=== PATIENT | female | born 1985 | race Caucasian/White ===

== ENCOUNTER 2016-07-15 17:18 | Inpatient (IN) | payer OTHER ==
[~2016-07-15] VITALS: Ht 167.6 cm; Wt 55.2 kg
[~2016-07-15 17:18] MED LIST: DICL75 PO; Z.0.BCPILL PO
[2016-07-15 17:20] VITALS: BP 107/75; PULSE 144; RESP 20; TEMP 98.3; O2SAT 98
[2016-07-15] MEDS ORDERED: SODIUM CHLOR 0.9% 1000 ML INJ 1,000 ML IV SCH ×2 (17:42)
[2016-07-15] MEDS ORDERED: ONDANSETRON HCL 4 MG/2 ML VIAL IV PUSH ONE (17:45)
--- NOTE | 2016-07-15 17:46 | PD ---
HPI Chief Complaint: Abdominal Pain Time Seen by Provider: 17:37 Travel History International Travel<30 days: No Contact w/Intl Traveler<30days: No Traveled to known affect area: No History of Present Illness HPI This is a 30-year-old female who presents for evaluation of abdominal pain, diarrhea, nausea, vomiting, fevers. She reports that she has had several episodes of watery diarrhea for the past 5-6 days. For the past 3 days she has had right-sided abdominal pain, fevers as high as 104, nausea and vomiting. She describes the pain is an aching pain which is constant but worse with palpation. Denies any dysuria or increased urinary frequency or hesitancy, cough or congestion, stiff neck, sore throat, rash or recent travel. She does note that about a month ago she was treated for skin infection with an antibiotic but she does not remember the name of the antibiotic. No history of abdominal surgery in the past. No history of C. difficile in the past. Her primary care physician is Dr. Slade and Dr. Slade told to come here today for evaluation. She has no other complaints. [facility] Past Medical History Anxiety: Yes Diminished Hearing: No Headaches: Yes Immunizations Current: Yes ?: Not Past Surgical History Oral Surgery: Yes Other Surgery: Yes (some skin moles removed) Family History Family Hypercholesterolemia: Yes Social History Alcohol Use: Yes (DAILY/LARGE BOTTLE VODKA PER WEEK) Tobacco Use: Yes (1 PPD) Substance Use: Yes (marijuana ) Allergies-Medications (Allergen,Severity, Reaction): Coded Allergies: Codeine (Verified Allergy, Severe, Rash, 07/15/16) itching, nausea/vomiting Latex (Verified Allergy, Severe, Rash, 07/15/16) Morphine (Verified Allergy, Severe, Nausea/Vomiting, 07/15/16) Reported Meds & Prescriptions Reported Meds & Active Scripts Active Reported Flexeril (Cyclobenzaprine HCl) 10 Mg Tab 10 Mg PO TID Naproxen 500 Mg Tab 500 Mg PO BID PRN Sertraline (Sertraline HCl) 50 Mg Tab 50 Mg PO DAILY Xanax (Alprazolam) 0.25 Mg Tab 0.25 Mg PO DAILY PRN Review of Systems Except as stated in HPI: all other systems reviewed are Neg Physical Exam Narrative GENERAL: This is a well-developed well-nourished female who appears uncomfortable on initial examination. She is tachycardic in triage. SKIN: Warm and dry. HEAD: Atraumatic. Normocephalic. EYES: Pupils equal and round. No scleral icterus. No injection or drainage. ENT: No nasal bleeding or discharge. Mucous membranes pink and moist. NECK: Trachea midline. No JVD. CARDIOVASCULAR: Regular rate and rhythm. No murmur appreciated. RESPIRATORY: No accessory muscle use. Clear to auscultation. Breath sounds equal bilaterally. GASTROINTESTINAL: Abdomen soft, right upper and lower quadrant tenderness to palpation without guarding. There is right CVA tenderness. MUSCULOSKELETAL: No obvious deformities. No edema. Neck supple with full range of motion. NEUROLOGICAL: Awake and alert. No obvious cranial nerve deficits. Motor grossly within normal limits. Normal speech. PSYCHIATRIC: Appropriate mood and affect; insight and judgment normal. Data Data Last Documented VS Vital Signs Date Time Temp Pulse Resp B/P Pulse Ox O2 Delivery O2 Flow Rate FiO2 07/15/16 19:20 100.1 112 18 123/68 100 Room Air Orders Complete Blood Count With Diff (07/15/16 17:41) Comprehensive Metabolic Panel (07/15/16 17:41) Lactic Acid Sepsis Protocol (07/15/16 17:41) Magnesium (Mg) (07/15/16 17:41) Urinalysis - C+S If Indicated (07/15/16 17:41) Blood Culture (07/15/16 17:41) Ecg Monitoring (07/15/16 17:41) Iv Access Insert/Monitor (07/15/16 17:41) Oximetry (07/15/16 17:41) Oxygen Administration (07/15/16 17:41) Ct Abd/Pel W Iv Contrast(Rout) (07/15/16 17:41) Ed Urine Pregnancytest Poc (07/15/16 17:41) Influenzae A/B Antigen (07/15/16 17:41) Electrocardiogram (07/15/16 ) C Diff Toxin Pcr (07/15/16 17:42) Enteric Path (Stool) (07/15/16 17:42) Sodium Chlor 0.9% 1000 Ml Inj (Ns 1000 M (07/15/16 17:42) Sodium Chlor 0.9% 1000 Ml Inj (Ns 1000 M (07/15/16 17:42) Ondansetron Inj (Zofran Inj) (07/15/16 17:45) Hydromorphone Pf Inj (Dilaudid Pf Inj) (07/15/16 18:00) Urine Culture (07/15/16 17:55) Ceftriaxone Inj (Rocephin Inj) (07/15/16 19:00) Iohexol 350 Inj (Omnipaque 350 Inj) (07/15/16 19:30) Admit Order (Ed Use Only) (07/15/16 20:41) Labs Laboratory Tests Test 07/15/16 07/15/16 17:55 20:35 Sodium Level 132 MEQ/L Potassium Level 3.5 MEQ/L Chloride Level 92 MEQ/L Carbon Dioxide Level 24.9 MEQ/L Anion Gap 15 MEQ/L Blood Urea Nitrogen 17 MG/DL Creatinine 0.91 MG/DL Estimat Glomerular Filtration 72 ML/MIN Rate Random Glucose 120 MG/DL Lactic Acid Level 2.1 mmol/L 0.9 mmol/L Calcium Level 9.0 MG/DL Magnesium Level 1.5 MG/DL Total Bilirubin 0.7 MG/DL Aspartate Amino Transf 43 U/L (AST/SGOT) Alanine Aminotransferase 48 U/L (ALT/SGPT) Alkaline Phosphatase 150 U/L Total Protein 7.7 GM/DL Albumin 3.6 GM/DL White Blood Count 15.2 TH/MM3 Red Blood Count 4.44 MIL/MM3 Hemoglobin 14.6 GM/DL Hematocrit 43.6 % Mean Corpuscular Volume 98.2 FL Mean Corpuscular Hemoglobin 32.9 PG Mean Corpuscular Hemoglobin 33.6 % Concent Red Cell Distribution Width 12.5 % Platelet Count 100 TH/MM3 Mean Platelet Volume 9.6 FL Neutrophils (%) (Auto) 85.7 % Lymphocytes (%) (Auto) 3.6 % Monocytes (%) (Auto) 10.4 % Eosinophils (%) (Auto) 0.0 % Basophils (%) (Auto) 0.3 % Neutrophils # (Auto) 13.0 TH/MM3 Lymphocytes # (Auto) 0.6 TH/MM3 Monocytes # (Auto) 1.6 TH/MM3 Eosinophils # (Auto) 0.0 TH/MM3 Basophils # (Auto) 0.0 TH/MM3 CBC Comment DIFF FINAL Differential Comment Urine Color ORANGE Urine Turbidity CLOUDY Urine pH 6.0 Urine Specific [place] 1.025 Urine Protein 300 mg/dL Urine Glucose (UA) NEG mg/dL Urine Ketones TRACE mg/dL Urine Occult Blood MOD Urine Nitrite NEG Urine Bilirubin NEG Urine Urobilinogen 4.0 MG/DL Urine Leukocyte Esterase LARGE Urine RBC 4 /hpf Urine WBC /hpf Urine WBC Clumps OCC Urine Squamous Epithelial 6 /hpf Cells Urine Bacteria FEW /hpf Urine Hyaline Casts 12 /lpf Urine Mucus MANY /lpf Microscopic Urinalysis Comment CULTURE INDICATED MDM Medical Decision Making Medical Screen Exam Complete: Yes Emergency Medical Condition: Yes Medical Record Reviewed: Yes Differential Diagnosis C. difficile colitis, gastroenteritis, appendicitis, tubo-ovarian abscess, sepsis, dehydration, electrolyte abnormality Narrative Course This is a 28-year-old female who presents with 5-6 days of watery stool, 3 days of high fevers, nausea and vomiting and right-sided abdominal and flank pain. On initial examination she appears uncomfortable. She is tachycardic with a heart rate of 144, not currently afebrile in triage she reports that she took naproxen earlier in the day. Given history of recent antibiotic use stool cultures and C. difficile PCR been ordered. IV will be established, EKG will be ordered, lab work, blood cultures, urinalysis will be sent. 2 L of IV fluids and Zofran has been ordered. This patient was initially seen in triage. The patient will be moved to medical bed when one becomes available. Glenn Chew Jul 15, 2016 17:46
[2016-07-15 17:50] VITALS: BP 122/69; PULSE 129; RESP 18; O2SAT 100
--- NOTE | 2016-07-15 17:57 | PD ---
Physical Exam Date Seen by Provider: Jul 15, 2016 Time Seen by Provider: 17:54 Narrative The patient is a 30-year-old female who was initially evaluated by the mid-level provider, James Chew PA-C, in triage. Please refer to the initial history, physical, diagnostic evaluation, and treatment modality plan. Data Data Last Documented VS Vital Signs Date Time Temp Pulse Resp B/P Pulse Ox O2 Delivery O2 Flow Rate FiO2 07/15/16 19:20 100.1 112 18 123/68 100 Room Air Orders Complete Blood Count With Diff (07/15/16 17:41) Comprehensive Metabolic Panel (07/15/16 17:41) Lactic Acid Sepsis Protocol (07/15/16 17:41) Magnesium (Mg) (07/15/16 17:41) Urinalysis - C+S If Indicated (07/15/16 17:41) Blood Culture (07/15/16 17:41) Ecg Monitoring (07/15/16 17:41) Iv Access Insert/Monitor (07/15/16 17:41) Oximetry (07/15/16 17:41) Oxygen Administration (07/15/16 17:41) Ct Abd/Pel W Iv Contrast(Rout) (07/15/16 17:41) Ed Urine Pregnancytest Poc (07/15/16 17:41) Influenzae A/B Antigen (07/15/16 17:41) Electrocardiogram (07/15/16 ) C Diff Toxin Pcr (07/15/16 17:42) Enteric Path (Stool) (07/15/16 17:42) Sodium Chlor 0.9% 1000 Ml Inj (Ns 1000 M (07/15/16 17:42) Sodium Chlor 0.9% 1000 Ml Inj (Ns 1000 M (07/15/16 17:42) Ondansetron Inj (Zofran Inj) (07/15/16 17:45) Hydromorphone Pf Inj (Dilaudid Pf Inj) (07/15/16 18:00) Urine Culture (07/15/16 17:55) Ceftriaxone Inj (Rocephin Inj) (07/15/16 19:00) Iohexol 350 Inj (Omnipaque 350 Inj) (07/15/16 19:30) Labs Laboratory Tests Test 07/15/16 17:55 White Blood Count 15.2 TH/MM3 Red Blood Count 4.44 MIL/MM3 Hemoglobin 14.6 GM/DL Hematocrit 43.6 % Mean Corpuscular Volume 98.2 FL Mean Corpuscular Hemoglobin 32.9 PG Mean Corpuscular Hemoglobin 33.6 % Concent Red Cell Distribution Width 12.5 % Platelet Count 100 TH/MM3 Mean Platelet Volume 9.6 FL Neutrophils (%) (Auto) 85.7 % Lymphocytes (%) (Auto) 3.6 % Monocytes (%) (Auto) 10.4 % Eosinophils (%) (Auto) 0.0 % Basophils (%) (Auto) 0.3 % Neutrophils # (Auto) 13.0 TH/MM3 Lymphocytes # (Auto) 0.6 TH/MM3 Monocytes # (Auto) 1.6 TH/MM3 Eosinophils # (Auto) 0.0 TH/MM3 Basophils # (Auto) 0.0 TH/MM3 CBC Comment DIFF FINAL Differential Comment Urine Color ORANGE Urine Turbidity CLOUDY Urine pH 6.0 Urine Specific [place] 1.025 Urine Protein 300 mg/dL Urine Glucose (UA) NEG mg/dL Urine Ketones TRACE mg/dL Urine Occult Blood MOD Urine Nitrite NEG Urine Bilirubin NEG Urine Urobilinogen 4.0 MG/DL Urine Leukocyte Esterase LARGE Urine RBC 4 /hpf Urine WBC /hpf Urine WBC Clumps OCC Urine Squamous Epithelial 6 /hpf Cells Urine Bacteria FEW /hpf Urine Hyaline Casts 12 /lpf Urine Mucus MANY /lpf Microscopic Urinalysis Comment CULTURE INDICATED Sodium Level 132 MEQ/L Potassium Level 3.5 MEQ/L Chloride Level 92 MEQ/L Carbon Dioxide Level 24.9 MEQ/L Anion Gap 15 MEQ/L Blood Urea Nitrogen 17 MG/DL Creatinine 0.91 MG/DL Estimat Glomerular Filtration 72 ML/MIN Rate Random Glucose 120 MG/DL Lactic Acid Level 2.1 mmol/L Calcium Level 9.0 MG/DL Magnesium Level 1.5 MG/DL Total Bilirubin 0.7 MG/DL Aspartate Amino Transf 43 U/L (AST/SGOT) Alanine Aminotransferase 48 U/L (ALT/SGPT) Alkaline Phosphatase 150 U/L Total Protein 7.7 GM/DL Albumin 3.6 GM/DL [facility] Medical Record Reviewed: Yes Supervised Visit with ELVIS: Yes Interpretation(s) EKG reveals sinus tachycardia with a heart rate of 129. Short VT interval of 80 ms, no delta wave visible. Nonspecific T wave changes. CT of the abdomen and pelvis reveals right sided pyelonephritis. No evidence of urinary tract obstruction. Laboratory Tests Test 07/15/16 17:55 White Blood Count 15.2 TH/MM3 Red Blood Count 4.44 MIL/MM3 Hemoglobin 14.6 GM/DL Hematocrit 43.6 % Mean Corpuscular Volume 98.2 FL Mean Corpuscular Hemoglobin 32.9 PG Mean Corpuscular Hemoglobin 33.6 % Concent Red Cell Distribution Width 12.5 % Platelet Count 100 TH/MM3 Mean Platelet Volume 9.6 FL Neutrophils (%) (Auto) 85.7 % Lymphocytes (%) (Auto) 3.6 % Monocytes (%) (Auto) 10.4 % Eosinophils (%) (Auto) 0.0 % Basophils (%) (Auto) 0.3 % Neutrophils # (Auto) 13.0 TH/MM3 Lymphocytes # (Auto) 0.6 TH/MM3 Monocytes # (Auto) 1.6 TH/MM3 Eosinophils # (Auto) 0.0 TH/MM3 Basophils # (Auto) 0.0 TH/MM3 CBC Comment DIFF FINAL Differential Comment Urine Color ORANGE Urine Turbidity CLOUDY Urine pH 6.0 Urine Specific [place] 1.025 Urine Protein 300 mg/dL Urine Glucose (UA) NEG mg/dL Urine Ketones TRACE mg/dL Urine Occult Blood MOD Urine Nitrite NEG Urine Bilirubin NEG Urine Urobilinogen 4.0 MG/DL Urine Leukocyte Esterase LARGE Urine RBC 4 /hpf Urine WBC /hpf Urine WBC Clumps OCC Urine Squamous Epithelial 6 /hpf Cells Urine Bacteria FEW /hpf Urine Hyaline Casts 12 /lpf Urine Mucus MANY /lpf Microscopic Urinalysis Comment CULTURE INDICATED Sodium Level 132 MEQ/L Potassium Level 3.5 MEQ/L Chloride Level 92 MEQ/L Carbon Dioxide Level 24.9 MEQ/L Anion Gap 15 MEQ/L Blood Urea Nitrogen 17 MG/DL Creatinine 0.91 MG/DL Estimat Glomerular Filtration 72 ML/MIN Rate Random Glucose 120 MG/DL Lactic Acid Level 2.1 mmol/L Calcium Level 9.0 MG/DL Magnesium Level 1.5 MG/DL Total Bilirubin 0.7 MG/DL Aspartate Amino Transf 43 U/L (AST/SGOT) Alanine Aminotransferase 48 U/L (ALT/SGPT) Alkaline Phosphatase 150 U/L Total Protein 7.7 GM/DL Albumin 3.6 GM/DL Differential Diagnosis Differential diagnosis includes influenza, colitis, enteritis, gastroenteritis, viral syndrome, atypical appendicitis, pyelonephritis, PID, cervicitis, sepsis. Narrative Course I, Dr. Duque, have reviewed the advance practice practitioner's documentation and am in agreement, met with the patient face to face, made the diagnosis, and the medical decision making was done by me. *My assessment and Findings: The patient is a 30-year-old female who is initially evaluated by Alex Chew PA-C. Please refer to the initial history , physical, diagnostic evaluation, and treatment modality plan. The patient notes a 4-5 day history of generalized pain, nausea, vomiting, diarrhea, and right sided abdominal pain. She also notes temperatures at home as high as 104. The patient denies any dysuria, frequency, or urgency. She does note mild white discharge with wiping which is normal, cannot recall her last menstrual cycle. However, she does note a history of irregular menstrual cycles. She does note the diarrhea as loose, watery, she took an antibiotic one month ago. However, she denies any known history of clostridium difficile. The patient did have laboratory evaluation and CT of the abdomen/pelvis as well as stool studies ordered in triage. The patient was administered 2 L of IV fluids, Zofran, and Dilaudid 0.5 mg intravenously. The patient's allergy to morphine as nausea, therefore, antiemetics were administered first. The patient 's white count is elevated 15.2, lactic acid is elevated 2.1, UA reveals innumerable WBCs. Therefore, patient will be treated for pyelonephritis, was administered Rocephin 1 g intravenously. Bedside UA test was negative. CT the abdomen and pelvis reveals right sided pyelonephritis. After 2 L of IV fluids, the patient's heart rate was still 120. Therefore, as patient does meet sepsis criteria, continues to be tachycardic after 2 L of IV fluids, the patient will be admitted. Sepsis Criteria SIRS Criteria (2 or more): Heart rate over 90, WBC > 94009, < 4000 or > 10% bands Sepsis Criteria (SIRS+source): Infect source susp/known Severe Sepsis (+one): Lactate >2 Criteria Outcome: Meets severe sepsis criteria Physician Communication Physician Communication [facility] [employer] I discussed the patient with Dr. Caballero who agrees with admission. Diagnosis Primary Impression: Pyelonephritis Additional Impression: Sepsis Qualified Code: A41.9 - Sepsis, due to unspecified organism Admitting Information Admitting Physician Requests: Admit Condition: Stable Jhonny Duque MD Jul 15, 2016 17:57
[2016-07-15] MEDS ORDERED: HYDROmorphone HCL PF 1 MG/ML VIAL IV PUSH ONE (18:00)
[2016-07-15 18:15] LABS: BASOPHIL % 0.3 % (0.0-2.0); HEMATOCRIT 43.6 % (35.0-46.0); HEMO FLAGS DIFF FINAL; LYMPH % 3.6 % (9.0-44.0); LYMPHOCYTE # 0.6 TH/MM3 (1.0-4.8); MEAN CELL VOLUME 98.2 FL (80.0-100.0); MEAN CORPUSCULAR HEMOGLOBIN 32.9 PG (27.0-34.0); MEAN CORPUSCULAR HGB CONC 33.6 % (32.0-36.0); MONO % 10.4 % (0.0-8.0); NEUT % 85.7 % (16.0-70.0); PLATELET COUNT 100 TH/MM3 (150-450); RED BLOOD COUNT 4.44 MIL/MM3 (4.00-5.30); RED CELL DISTRIBUTION WIDTH 12.5 % (11.6-17.2); WHITE BLOOD COUNT 15.2 TH/MM3 (4.0-11.0)
[2016-07-15 18:17] LABS: BACTERIA, URINE FEW /hpf; BLOOD, URINE MOD (NEG); COMMENT (UR) CULTURE INDICATED; CULTURE IF INDICATED CULTURE INDICATED; GLUCOSE,URINE NEG (NEG); HYALINE CAST, URINE 12 /lpf (RARE); KETONE, URINE TRACE mg/dL (NEG); MUCUS URINE MANY /lpf (OCC); NITRITE,URINE NEG (NEG); SQUAMOUS EPITHELIAL CELL URINE 6 /hpf (0-5)
[2016-07-15 18:18] LABS: URINE COLOR ORANGE (YELLW/STRAW)
[2016-07-15 18:37] LABS: ANION GAP 15 MEQ/L (5-15); AST (GOT) 43 U/L (15-37); BICARBONATE 24.9 MEQ/L (21.0-32.0); BLOOD UREA NITROGEN 17 MG/DL (7-18); CHLORIDE 92 MEQ/L (98-107); GLOMERULAR FILTRATION RATE 72 ML/MIN (>89); MAGNESIUM 1.5 MG/DL (1.5-2.5); POTASSIUM 3.5 MEQ/L (3.5-5.1); SODIUM (NA) 132 MEQ/L (136-145)
[2016-07-15 18:40] LABS: ALKALINE PHOSPHATASE 150 U/L (45-117); ALT (GPT) 48 U/L (10-53); TOTAL BILIRUBIN ADULT 0.7 MG/DL (0.2-1.0)
[2016-07-15] MEDS ORDERED: cefTRIAXone INJ 1,000 MG in SODIUM CHLORIDE 0.9% INJ 100 ML IV ONE (19:00)
[2016-07-15 19:20] VITALS: BP 123/68; PULSE 112; RESP 18; TEMP 100.1; O2SAT 100
[2016-07-15] MEDS ORDERED: IOHEXOL 350 MG/ML 10 ML VIAL (for RAD DIAG) IV ONE (19:30)
--- NOTE | 2016-07-15 19:41 | RADRPT ---
EXAM DATE/TIME: 07/15/2016 19:16 [place] COMPARISON: No previous studies available for comparison. INDICATIONS : Lower abdominal pain that radiates to back with fever. IV CONTRAST: 100 cc Omnipaque 350 (iohexol) IV ORAL CONTRAST: No oral contrast ingested. RADIATION DOSE: 9.96 CTDIvol (mGy) MEDICAL HISTORY : None SURGICAL HISTORY : None. ENCOUNTER: Initial ACUITY: 2 days PAIN SCALE: 8/10 LOCATION: lower quadrant abdomen TECHNIQUE: Volumetric scanning of the abdomen and pelvis was performed. Using automated exposure control and ad justment of the mA and/or kV according to patient size, radiation dose was kept as low as reasonably achievable to obtain optimal diagnostic quality images. FINDINGS: LOWER LUNGS: The visualized lower lungs are clear. LIVER: Homogeneous density without lesion. There is no dilation of the biliary tree. No calcified gallston es. SPLEEN: Normal size without lesion. PANCREAS: Within normal limits. KIDNEYS: Heterogeneous right nephrogram and left perinephric edema. I don't see a stone, hydronephrosis or hyd roureter. There is robust enhancement of the right urothelium. Left kidney enhancement within normal limits. ADRENAL GLANDS: Within normal limits. VASCULAR: There is no aortic aneurysm. BOWEL/MESENTERY: The stomach, small bowel, and colon demonstrate no acute abnormality. There is no free intraperitone al air or fluid. ABDOMINAL WALL: Within normal limits. RETROPERITONEUM: There is no lymphadenopathy. BLADDER: No wall thickening or mass. REPRODUCTIVE: Within normal limits. INGUINAL: There is no lymphadenopathy or hernia. MUSCULOSKELETAL: Within normal limits for patient age. CONCLUSION: Right-sided pyelonephritis. No evidence of urinary tract obstruction. Hardeep Salazar MD on July 15, 2016 at 19:38 Board Certified Radiologist. This report was verified electronically.
[2016-07-15 20:08] LABS: LACTIC ACID GHOST NOT REPORTABLE
[2016-07-15] MEDS ORDERED: NALOXONE HCL 0.4 MG/ML AMP IV PRN (20:45)
[2016-07-15] MEDS ORDERED: SODIUM CHLORIDE 0.9% FLUSH 5 ML FLUSH FLUSH PRN (20:45)
[2016-07-15] MEDS ORDERED: ONDANSETRON HCL 4 MG/2 ML VIAL IVP PRN (20:45)
[2016-07-15] MEDS: SODIUM CHLORIDE 0.9% FLUSH 5 ML FLUSH FLUSH SCH (21:00)
[2016-07-15] MEDS ORDERED: ALPR.25 PO (21:03)
[2016-07-15] MEDS ORDERED: SERT-132 PO (21:03)
[2016-07-15] MEDS ORDERED: CYCL1TAB29 PO (21:03)
[2016-07-15] MEDS ORDERED: NAPR500T PO (21:03)
[2016-07-15 21:04] VITALS: BP 110/77; PULSE 109; RESP 18; TEMP 98.1; O2SAT 100
[2016-07-15] MEDS: SODIUM CHLOR 0.9% 1000 ML INJ 1,000 ML IV SCH (21:16)
[2016-07-15] MEDS: CIPROFLOXACIN 400 MG PREMIX 200 ML IV SCH (21:17)
[2016-07-15] MEDS: HYDROmorphone HCL PF 1 MG/ML VIAL IV PUSH PRN (22:05)
[2016-07-15 22:14] VITALS: BP 119/58
[2016-07-15 22:30] VITALS: BP 112/58; PULSE 119; RESP 18; TEMP 99.2; O2SAT 98
[2016-07-16] VITALS (10 sets, daily range): BP systolic 87–111; BP diastolic 44–70; PULSE 80–112; RESP 16–20; TEMP 97.5–102.9; O2SAT 97–100
[2016-07-16] MEDS ORDERED: ACETAMINOPHEN 325 MG TAB PO ONE
--- NOTE | 2016-07-16 03:09 | HHI.HP ---
[facility] Lyn Slade MD Admission Diagnosis pyelonephritis, sepsis Diagnoses: Chief Complaint: Abdominal pain, fevers, diarrhea, vomiting, nausea Travel History International Travel<30 Days: No Contact w/Intl Traveler <30 Da: No Traveled to Known Affected Are: No Sepsis Criteria SIRS Criteria (2 or more): Heart rate over 90, WBC > 35082, < 4000 or > 10% bands Sepsis Criteria (SIRS+source): Infect source susp/known Severe Sepsis (+one): Lactate >2 History of Present Illness 30-year-old female with a history of anxiety and depression presented to the ED with complaints of abdominal pain, fevers, diarrhea, vomiting, nausea. Patient states on Tuesday she began to have nausea, vomiting, diarrhea and sharp abdominal pain in the right lower quadrant. She states abdominal pain is severe and radiates to her back. She went today to her primary care physician who told her to come to the ED for evaluation of appendicitis. She states her diarrhea has been a few times a day and liquid stools, so far none today. Patient states for the last 3 weeks she's had increased migraines and fevers off and on. One month ago she was on medication for a hemorrhoids and what she was taking a pill by mouth and a suppository, she is unsure of the name of the medication, and unsure if it was an antibiotic. She does complain of night sweats for 3 weeks, but has been having increased night sweats since Tuesday. When patient arrived her fever was 101. She denies any chest pain, dysuria, hematuria, or shortness of breath. Review of Systems Constitutional: COMPLAINS OF: Fever, Chills Respiratory: DENIES: Cough, Sputum production, Shortness of breath Cardiovascular: DENIES: Chest pain, Lower Extremity Edema Gastrointestinal: COMPLAINS OF: Diarrhea, Nausea, Vomiting Genitourinary: DENIES: Urinary frequency, Hematuria, Dysuria Musculoskeletal: COMPLAINS OF: Back pain, DENIES: Neck pain Integumentary: DENIES: Rash Hematologic/lymphatic: DENIES: Lymphadenopathy Neurologic: COMPLAINS OF: Headache (chronic) Past Family Social History Past Medical History Anxiety Depression Scoliosis Migraines Past Surgical History Oral surgeries Reported Medications Reported Meds & Active Scripts Active Reported Flexeril (Cyclobenzaprine HCl) 10 Mg Tab 10 Mg PO TID Naproxen 500 Mg Tab 500 Mg PO BID PRN Sertraline (Sertraline HCl) 50 Mg Tab 50 Mg PO DAILY Xanax (Alprazolam) 0.25 Mg Tab 0.25 Mg PO DAILY PRN Allergies: Coded Allergies: Codeine (Verified Allergy, Severe, Rash, 07/15/16) itching, nausea/vomiting Latex (Verified Allergy, Severe, Rash, 07/15/16) Morphine (Verified Allergy, Severe, Nausea/Vomiting, 07/15/16) Active Ordered Medications Current Medications Medications (Trade) Dose Ordered Sig/Leon Route Start Time Stop Time Status Last Admin (NS 1000 ml Inj) 1,000 ml @ 100 mls/hr Q10H IV 07/15/16 20:45 07/15/16 21:16 (NS Flush) 2 ml UNSCH PRN FLUSH 07/15/16 20:45 (NS Flush) 2 ml BID FLUSH 07/15/16 21:00 (Zofran Inj) 4 mg Q6H PRN IVP 07/15/16 20:45 07/15/16 22:04 (Lovenox Inj) 40 mg Q24H SQ 07/16/16 09:00 Naloxone HCl 0.4 mg 0.4 mg UNSCH PRN IV 07/15/16 20:45 (Cipro 400 Mg Premix) 200 ml @ 200 mls/hr Q12H IV 07/15/16 21:00 07/15/16 21:17 (Dilaudid Pf Inj) 0.2 mg Q4H PRN IV PUSH 07/15/16 21:00 07/15/16 22:05 (Xanax) 0.25 mg DAILY PRN PO 07/16/16 00:00 (Flexeril) 10 mg TID PO 07/16/16 09:00 (Zoloft) 50 mg DAILY PO 07/16/16 09:00 Family History Patient denies any family history Social History Tobacco use: 7 cigarettes a day Alcohol abuse: Occasionally Illicit drug use: Denies Physical Exam Vital Signs Vital Signs Date Time Temp Pulse Resp B/P Pulse Ox O2 Delivery O2 Flow Rate FiO2 07/15/16 22:30 99.2 119 18 112/58 98 07/15/16 22:14 115 18 119/58 100 07/15/16 21:04 98.1 109 18 110/77 100 Room Air 07/15/16 19:20 100.1 112 18 123/68 100 Room Air 07/15/16 17:50 95 Room Air 07/15/16 17:50 129 18 122/69 100 Room Air 07/15/16 17:48 18 07/15/16 17:20 98.3 144 20 107/75 98 Room Air Physical Exam GENERAL: This is a well-nourished, well-developed patient. SKIN: No rashes, ecchymoses or lesions. Diaphoretic HEAD: Atraumatic. Normocephalic. No temporal or scalp tenderness. EYES: Pupils equal round and reactive. Extraocular motions intact. ENT: Nose without bleeding, purulent drainage or septal hematoma. Airway patent. NECK: Trachea midline. No JVD CARDIOVASCULAR: Regular rate and rhythm without murmurs, gallops, or rubs. RESPIRATORY: Clear to auscultation. Breath sounds equal bilaterally. No wheezes , rales, or rhonchi. GASTROINTESTINAL: Abdomen soft, right lower quadrant tenderness, nondistended. No guarding. MUSCULOSKELETAL: Extremities without clubbing, cyanosis, or edema. No joint tenderness, effusion, or edema noted. No calf tenderness. Negative Homans sign bilaterally. NEUROLOGICAL: Awake and alert. Motor and sensory grossly within normal limits. Normal speech. Laboratory Laboratory Tests Test 07/15/16 07/15/16 17:55 20:35 White Blood Count 15.2 Red Blood Count 4.44 Hemoglobin 14.6 Hematocrit 43.6 Mean Corpuscular Volume 98.2 Mean Corpuscular Hemoglobin 32.9 Mean Corpuscular Hemoglobin 33.6 Concent Red Cell Distribution Width 12.5 Platelet Count 100 Mean Platelet Volume 9.6 Neutrophils (%) (Auto) 85.7 Lymphocytes (%) (Auto) 3.6 Monocytes (%) (Auto) 10.4 Eosinophils (%) (Auto) 0.0 Basophils (%) (Auto) 0.3 Neutrophils # (Auto) 13.0 Lymphocytes # (Auto) 0.6 Monocytes # (Auto) 1.6 Eosinophils # (Auto) 0.0 Basophils # (Auto) 0.0 CBC Comment DIFF FINAL Differential Comment Urine Color ORANGE Urine Turbidity CLOUDY Urine pH 6.0 Urine Specific [place] 1.025 Urine Protein 300 Urine Glucose (UA) NEG Urine Ketones TRACE Urine Occult Blood MOD Urine Nitrite NEG Urine Bilirubin NEG Urine Urobilinogen 4.0 Urine Leukocyte Esterase LARGE Urine RBC 4 Urine WBC Urine WBC Clumps OCC Urine Squamous Epithelial 6 Cells Urine Bacteria FEW Urine Hyaline Casts 12 Urine Mucus MANY Microscopic Urinalysis Comment CULTURE INDICATED Sodium Level 132 Potassium Level 3.5 Chloride Level 92 Carbon Dioxide Level 24.9 Anion Gap 15 Blood Urea Nitrogen 17 Creatinine 0.91 Estimat Glomerular Filtration 72 Rate Random Glucose 120 Lactic Acid Level 2.1 0.9 Calcium Level 9.0 Magnesium Level 1.5 Total Bilirubin 0.7 Aspartate Amino Transf 43 (AST/SGOT) Alanine Aminotransferase 48 (ALT/SGPT) Alkaline Phosphatase 150 Total Protein 7.7 Albumin 3.6 Date/Time Procedure Status Source Growth 07/15/16 18:00 Influenza Types A,B Antigen (JOSHUA) - Final Complete Nasal Aspirate NEGATIVE FOR FLU A AND B ANTIGEN.... 07/15/16 17:55 Urine Culture Received Urine Catheterized Urine Pending 07/15/16 17:55 Aerobic Blood Culture Received Blood Peripheral Pending 07/15/16 17:55 Anaerobic Blood Culture Received Blood Peripheral Pending Result Diagram: 07/15/16 1755 07/15/16 1755 Imaging Last Impressions Abdomen/Pelvis CT 07/15/16 1741 Signed Impressions: Service Date/Time: June 19:16 - CONCLUSION: Right-sided pyelonephritis. No evidence of urinary tract obstruction. Hardeep Salazar MD Assessment and Plan Problem List: (1) Pyelonephritis ICD Code: N12 Status: Acute (2) Sepsis ICD Code: A41.9 Status: Acute (3) Diarrhea ICD Code: R19.7 Status: Acute (4) Anxiety and depression ICD Code: F41.9 Status: Chronic Assessment and Plan 30-year-old female with a history of anxiety, scoliosis, and depression presented to the ED with complaints of abdominal pain, nausea, vomiting diarrhea. Pyelonephritis, acute UA shows protein blood and large leukocyte esterase Images reviewed: Abdominal CT shows Right-sided pyelonephritis. No evidence of urinary tract obstruction. -Culture pending -IV antibiotics ciprofloxacin -Supportive IVF -Pain management with IV Dilaudid Sepsis by criteria, acute Labs WBC 15.2, heart rate on admission 128, lactic acid 2.1 -Fluid bolus given in ED , Repeat lactic acid was 0.9 -Tylenol for fevers -CBC in a.m. Diarrhea, acute -C. difficile pending Depression/anxiety, chronic -Restart home medications Zoloft and Xanax DVT prophylaxis: Lovenox Written by Claudia MONTERROSO, acting as scribe for Dr. Caballero on 07/16/16 at 0400. All or portions of this note were transcribed by scribe [Claudia Zimmerman]. I, Dr. Aleks Caballero personally performed the history, physical exam, and medical decision making; and confirmed the accuracy of the information in the transcribed note. Authenticated by Dr. Aleks Caballero on 07/16/16 at 0400. Discussed Condition With Patient, RN and ED physician Physician Certification 2 Midnight Certification Type: Admission for Inpatient Services Order for Inpatient Services The services are ordered in accordance with Medicare regulations or non- Medicare payer requirements, as applicable. In the case of services not specified as inpatient-only, they are appropriately provided as inpatient services in accordance with the 2-midnight benchmark. Estimated LOS (days): 2 days is the estimated time the patient will need to remain in the hospital, assuming treatment plan goals are met and no additional complications. Post-Hospital Plan: Home Problem Qualifiers (1) Sepsis: Qualified Code: A41.9 - Sepsis, due to unspecified organism (2) Diarrhea: Qualified Code: R19.7 - Diarrhea, unspecified type Claudia Zimmerman Jul 16, 2016 03:09 Aleks Caballero MD Jul 16, 2016 08:35
[2016-07-16 07:35] LABS: AUTOMATED NEUTROPHIL # 10.3 TH/MM3 (1.8-7.7); BASOPHIL % 0.2 % (0.0-2.0); EOSINOPHIL % 0.1 % (0.0-4.0); HEMATOCRIT 37.2 % (35.0-46.0); LYMPHOCYTE # 0.5 TH/MM3 (1.0-4.8); MEAN CELL VOLUME 98.9 FL (80.0-100.0); MEAN CORPUSCULAR HEMOGLOBIN 32.8 PG (27.0-34.0); MEAN CORPUSCULAR HGB CONC 33.2 % (32.0-36.0); MONO % 9.4 % (0.0-8.0); NEUT % 86.3 % (16.0-70.0); PLATELET COUNT 94 TH/MM3 (150-450); RED BLOOD COUNT 3.76 MIL/MM3 (4.00-5.30); RED CELL DISTRIBUTION WIDTH 12.5 % (11.6-17.2)
[2016-07-16 07:37] LABS: HEMO FLAGS AUTO DIFF
[2016-07-16 07:56] LABS: ALKALINE PHOSPHATASE 114 U/L (45-117); ALT (GPT) 32 U/L (10-53); ANION GAP 7 MEQ/L (5-15); AST (GOT) 27 U/L (15-37); BICARBONATE 28.6 MEQ/L (21.0-32.0); BLOOD UREA NITROGEN 12 MG/DL (7-18); CHLORIDE 103 MEQ/L (98-107); GLOMERULAR FILTRATION RATE 92 ML/MIN (>89); POTASSIUM 3.4 MEQ/L (3.5-5.1); SODIUM (NA) 139 MEQ/L (136-145); TOTAL BILIRUBIN ADULT 0.5 MG/DL (0.2-1.0)
[2016-07-16] MEDS: SERTRALINE HCL 50 MG TAB PO SCH (08:29)
[2016-07-16] MEDS: ENOXAPARIN SODIUM 40 MG/0.4 ML SYRINGE SQ SCH (08:29)
[2016-07-16] MEDS: CYCLOBENZAPRINE HCL 10 MG TAB PO SCH ×3 (08:29→17:38)
[2016-07-16 08:30] LABS: SCAN/DIFF AUTO DIFF CONFIRMED
[2016-07-16] MEDS: SODIUM CHLORIDE 0.9% FLUSH 5 ML FLUSH FLUSH SCH ×2 (08:30→21:51)
[2016-07-16] MEDS: CIPROFLOXACIN 400 MG PREMIX 200 ML IV SCH ×2 (08:30→21:51)
[2016-07-16] MEDS ORDERED: RESP: ALBUTEROL 2.5 MG/IPRATROPIUM 0.5 MG NEB (PRN) NEB (10:00)
[2016-07-16] MEDS ORDERED: POTASSIUM CHLORIDE 10 MEQ CONTROLLED RELEASE TAB PO ONE (10:00)
--- NOTE | 2016-07-16 10:27 | HHI.PR ---
Subjective Remarks Follow-up sepsis/pyelonephritis/diarrhea 07/16/16-patient seen and examined by me continue to have multiple episode of diarrhea however denies any nausea or vomiting since this morning. Low BP. She has one positive blood culture. Objective Vitals Vital Signs Date Time Temp Pulse Resp B/P Pulse Ox O2 Delivery O2 Flow Rate FiO2 07/16/16 08:00 98.2 80 18 90/52 97 07/16/16 06:15 96/44 07/16/16 05:20 97.6 82 16 87/54 99 07/16/16 05:00 97.5 83 16 88/44 99 07/15/16 22:30 99.2 119 18 112/58 98 07/15/16 22:14 115 18 119/58 100 07/15/16 21:04 98.1 109 18 110/77 100 Room Air 07/15/16 19:20 100.1 112 18 123/68 100 Room Air 07/15/16 17:50 95 Room Air 07/15/16 17:50 129 18 122/69 100 Room Air 07/15/16 17:48 18 07/15/16 17:20 98.3 144 20 107/75 98 Room Air I/O 07/15/16 07/15/16 07/15/16 07/16/16 07/16/16 07/16/16 07:00 15:00 23:00 07:00 15:00 23:00 Intake Total 480 ml Output Total 650 ml Balance -170 ml Intake Oral 480 ml Output Urine Total 650 ml # Voids 1 # Bowel Movements 0 Result Diagram: 07/16/16 0550 07/16/16 0550 Imaging Last Impressions Abdomen/Pelvis CT 07/15/16 1741 Signed Impressions: Service Date/Time: June 19:16 - CONCLUSION: Right-sided pyelonephritis. No evidence of urinary tract obstruction. Hardeep Salazar MD Objective Remarks GENERAL: NAD SKIN: Warm and dry. HEAD: Normocephalic. EYES: No scleral icterus. No injection or drainage. NECK: Supple, trachea midline. No JVD or lymphadenopathy. CARDIOVASCULAR: Regular rate and rhythm without murmurs, gallops, or rubs. RESPIRATORY: Breath sounds equal bilaterally. No accessory muscle use. GASTROINTESTINAL: Abdomen soft, non-tender, nondistended. MUSCULOSKELETAL: No cyanosis, or edema. BACK: Nontender without obvious deformity. No CVA tenderness. A/P Problem List: (1) Pyelonephritis ICD Code: N12 Status: Acute (2) Sepsis ICD Code: A41.9 Status: Acute (3) Diarrhea ICD Code: R19.7 Status: Acute (4) Anxiety and depression ICD Code: F41.9 Status: Chronic (5) Hypotension ICD Code: I95.9 Status: Acute (6) Blood bacterial culture positive ICD Code: R78.81 Status: Acute Assessment and Plan 30-year-old female with 1-Sepsis: Secondary to pyelonephritis. Currently on Cipro IV pending culture report 2-Pyelonephritis: Currently on Cipro IV every 12 hour pending urine culture report 3-Positive bacteria blood culture :#1/4 positive for GNR; can be contaminant however will repeat blood culture x 2; continue with current antibiotic and hold on infectious disease consultation 4-Diarrhea: May be secondary to gastroenteritis as patient has sick contact with diarrhea however C. difficile PCR pending and will check stool for ova and parasite as well as. Start Lactinex 5-Hypotension: Secondary to volume loss, increase IV fluids to 125 cc/hour 6-Hypokalemia: Given 60 mEq potassium 1 now and repeat BMP in a.m. 7-DVT prophylaxis: Lovenox Problem Qualifiers (1) Sepsis: Qualified Code: A41.9 - Sepsis, due to unspecified organism (2) Diarrhea: Qualified Code: R19.7 - Diarrhea, unspecified type Cruzito Hall MD Jul 16, 2016 10:27
[2016-07-16 11:53] LABS: C. DIFF EPI 027 PRESUMPTIVE NEGATIVE (NEGATIVE); C. DIFF TOXIN PCR NEGATIVE (NEGATIVE)
[2016-07-16] MEDS: SODIUM CHLOR 0.9% 1000 ML INJ 1,000 ML IV SCH ×2 (14:01→21:51)
[2016-07-16] MEDS: HYDROmorphone HCL PF 1 MG/ML VIAL IV PUSH PRN (14:02)
--- NOTE | 2016-07-16 14:55 | EKG ---
Date Performed: 07/15/2016 Time Performed: 16:06:30 PTAGE: 30 years EKG: SINUS TACHYCARDIA WITH SHORT MA INTERVAL POSSIBLE RIGHT VENTRICULAR CONDUCTION DELAY NONSPE CIFIC T-WAVE ABNORMALITY ABNORMAL RHYTHM ECG NO PREVIOUS TRACING DOCTOR: Alvina Goodwin Interpretating Date/Time 07/16/2016 14:52:32
[2016-07-16] MEDS: ACETAMINOPHEN 325 MG TAB PO PRN (16:41)
[2016-07-16] MEDS: LACTOBACILLUS ACIDOPHILUS TAB PO SCH (21:50)
[2016-07-16] MEDS: ALPRAZolam 0.25 MG TAB PO PRN (21:50)
[2016-07-17 04:02] VITALS: BP 103/58; PULSE 84; RESP 16; TEMP 99.2; O2SAT 99
[2016-07-17 07:30] LABS: C. DIFF EPI 027 PRESUMPTIVE NEGATIVE (NEGATIVE); C. DIFF TOXIN PCR NEGATIVE (NEGATIVE)
[2016-07-17 08:00] VITALS: BP 98/61; PULSE 94; RESP 18; TEMP 98.2; O2SAT 98
[2016-07-17 08:09] LABS: AUTOMATED NEUTROPHIL # 5.7 TH/MM3 (1.8-7.7); BASOPHIL % 0.2 % (0.0-2.0); EOSINOPHIL % 0.1 % (0.0-4.0); HEMATOCRIT 33.3 % (35.0-46.0); HEMO FLAGS DIFF FINAL; LYMPH % 5.4 % (9.0-44.0); LYMPHOCYTE # 0.4 TH/MM3 (1.0-4.8); MEAN CELL VOLUME 98.3 FL (80.0-100.0); MEAN CORPUSCULAR HEMOGLOBIN 33.3 PG (27.0-34.0); MEAN CORPUSCULAR HGB CONC 33.9 % (32.0-36.0); MONO % 10.6 % (0.0-8.0); NEUT % 83.7 % (16.0-70.0); PLATELET COUNT 105 TH/MM3 (150-450); RED BLOOD COUNT 3.39 MIL/MM3 (4.00-5.30); RED CELL DISTRIBUTION WIDTH 12.5 % (11.6-17.2); WHITE BLOOD COUNT 6.8 TH/MM3 (4.0-11.0)
[2016-07-17 08:25] LABS: BICARBONATE 26.1 MEQ/L (21.0-32.0); POTASSIUM 3.3 MEQ/L (3.5-5.1)
[2016-07-17] MEDS: CYCLOBENZAPRINE HCL 10 MG TAB PO SCH ×3 (08:39→18:00)
[2016-07-17] MEDS: LACTOBACILLUS ACIDOPHILUS TAB PO SCH ×2 (08:39→20:03)
[2016-07-17] MEDS: SERTRALINE HCL 50 MG TAB PO SCH (08:39)
[2016-07-17] MEDS: SODIUM CHLORIDE 0.9% FLUSH 5 ML FLUSH FLUSH SCH ×2 (08:45→20:03)
[2016-07-17] MEDS: CIPROFLOXACIN 400 MG PREMIX 200 ML IV SCH (08:45)
[2016-07-17] MEDS: ENOXAPARIN SODIUM 40 MG/0.4 ML SYRINGE SQ SCH (09:00)
--- NOTE | 2016-07-17 09:59 | HHI.PR ---
Subjective Remarks Follow-up sepsis/pyelonephritis/diarrhea 07/16/16-patient seen and examined; patient continue to have multiple episode of diarrhea however denies any nausea or vomiting since this morning. Low BP. She has one positive blood culture. 07/17/16-patient seen and examined, spiking fevers. Reports improvement of diarrhea episode Objective Vitals Vital Signs Date Time Temp Pulse Resp B/P Pulse Ox O2 Delivery O2 Flow Rate FiO2 07/17/16 08:00 98.2 94 18 98/61 98 07/17/16 04:02 99.2 84 16 103/58 99 07/16/16 23:35 100.4 103 20 103/63 97 07/16/16 20:12 98.6 95 16 107/61 99 07/16/16 17:35 99.9 07/16/16 16:06 102.9 07/16/16 16:00 100.3 112 18 111/70 100 07/16/16 12:00 98.9 95 18 100/52 99 I/O 07/16/16 07/16/16 07/16/16 07/17/16 07/17/16 07/17/16 07:00 15:00 23:00 07:00 15:00 23:00 Intake Total 480 ml 2815 ml 1868 ml 240 ml Output Total 650 ml 600 ml Balance -170 ml 2815 ml 1268 ml 240 ml Intake Oral 480 ml 720 ml 960 ml 240 ml IV Total 2095 ml 908 ml Output Urine Total 650 ml 600 ml # Voids 2 0 3 # Bowel Movements 0 1 3 1 Result Diagram: 07/17/16 0709 07/17/16 0709 Imaging Last Impressions Abdomen/Pelvis CT 07/15/16 8391 Signed Impressions: Service Date/Time: June 19:16 - CONCLUSION: Right-sided pyelonephritis. No evidence of urinary tract obstruction. Hardeep Salazar MD Objective Remarks GENERAL: NAD SKIN: Warm and dry. HEAD: Normocephalic. EYES: No scleral icterus. No injection or drainage. NECK: Supple, trachea midline. No JVD or lymphadenopathy. CARDIOVASCULAR: Regular rate and rhythm without murmurs, gallops, or rubs. RESPIRATORY: Breath sounds equal bilaterally. No accessory muscle use. GASTROINTESTINAL: Abdomen soft, non-tender, nondistended. MUSCULOSKELETAL: No cyanosis, or edema. BACK: Nontender without obvious deformity. No CVA tenderness. A/P Problem List: (1) Pyelonephritis ICD Code: N12 Status: Acute (2) Sepsis ICD Code: A41.9 Status: Acute (3) Diarrhea ICD Code: R19.7 Status: Acute (4) Anxiety and depression ICD Code: F41.9 Status: Chronic (5) Hypotension ICD Code: I95.9 Status: Acute (6) Blood bacterial culture positive ICD Code: R78.81 Status: Acute Assessment and Plan 30-year-old female with 1-Sepsis: Secondary to pyelonephritis. Will switch to Rocephin 1-Cjhmjtlifofjtr-kgls-negative joshua: Currently on Cipro IV every 12 hour however will switch to Rocephin 1 g IV every 24 starting today 07/17/16 3-Positive bacteria blood culture :#1/4 positive for GNR;it appears this is a contaminant and repeat blood culture NTD 4-Diarrhea: C. difficile PCR negative, continue with conservative treatment and start Imodium.. Continue Lactinex 5-Hypotension: Secondary to volume loss, continue NS@ 125 cc/hour 6-Hypokalemia: Give 60 mEq potassium 1 now and repeat BMP in a.m. 7-DVT prophylaxis: Lovenox Problem Qualifiers (1) Sepsis: Qualified Code: A41.9 - Sepsis, due to unspecified organism (2) Diarrhea: Qualified Code: R19.7 - Diarrhea, unspecified type Cruzito Hall MD Jul 17, 2016 09:59
[2016-07-17] MEDS ORDERED: POTASSIUM CHLORIDE 10 MEQ CONTROLLED RELEASE TAB PO ONE (10:00)
[2016-07-17] MEDS ORDERED: LOPERAMIDE HCL 2 MG CAP PO PRN (10:00)
[2016-07-17] MEDS: cefTRIAXone INJ 1,000 MG in SODIUM CHLORIDE 0.9% INJ 100 ML IV SCH (11:04)
[2016-07-17 12:00] VITALS: BP 123/70; PULSE 90; RESP 18; TEMP 100.2; O2SAT 100
[2016-07-17] MEDS: ACETAMINOPHEN 325 MG TAB PO PRN (12:49)
[2016-07-17 16:00] VITALS: BP 108/70; PULSE 82; RESP 18; TEMP 99.5; O2SAT 100
[2016-07-17] MEDS ORDERED: SUMAtriptan SUCCINATE 25 MG TAB PO PRN (17:45)
[2016-07-17 20:00] VITALS: BP 118/74; PULSE 93; RESP 18; TEMP 99.9; O2SAT 99
[2016-07-17] MEDS: ALPRAZolam 0.25 MG TAB PO PRN (20:03)
[2016-07-17] MEDS: SODIUM CHLOR 0.9% 1000 ML INJ 1,000 ML IV SCH (23:24)
[2016-07-18] VITALS: BP 120/72; PULSE 95; RESP 16; TEMP 101.1; O2SAT 99
[2016-07-18] MEDS: SODIUM CHLOR 0.9% 1000 ML INJ 1,000 ML IV SCH (02:00)
[2016-07-18 04:00] VITALS: BP 119/75; PULSE 81; RESP 16; TEMP 99.4; O2SAT 97
[2016-07-18 07:23] LABS: POTASSIUM 3.6 MEQ/L (3.5-5.1)
[2016-07-18 07:24] LABS: BICARBONATE 25.5 MEQ/L (21.0-32.0)
[2016-07-18 08:00] VITALS: BP 146/81; PULSE 83; RESP 18; TEMP 98.2; O2SAT 98
--- NOTE | 2016-07-18 08:15 | HHI.PR ---
Subjective Remarks Follow-up sepsis/pyelonephritis/diarrhea 07/16/16-patient seen and examined; patient continue to have multiple episode of diarrhea however denies any nausea or vomiting since this morning. Low BP. She has one positive blood culture. 07/17/16-patient seen and examined, spiking fevers. Reports improvement of diarrhea episode 07/18/16-patient seen and examined, report improvement of headaches with Imitrex. Stated diarrhea episode improving. MAXIMUM TEMPERATURE 101.1 at midnight. Patient is requesting to be discharged home and states she is feeling better. Objective Vitals Vital Signs Date Time Temp Pulse Resp B/P Pulse Ox O2 Delivery O2 Flow Rate FiO2 07/18/16 04:00 99.4 81 16 119/75 97 07/18/16 00:00 101.1 95 16 120/72 99 07/17/16 20:00 99.9 93 18 118/74 99 07/17/16 16:00 99.5 82 18 108/70 100 07/17/16 12:00 100.2 90 18 123/70 100 I/O 07/17/16 07/17/16 07/17/16 07/18/16 07/18/16 07/18/16 07:00 15:00 23:00 07:00 15:00 23:00 Intake Total 240 ml 480 ml 240 ml Output Total 500 ml Balance 240 ml -20 ml 240 ml Intake Oral 240 ml 480 ml 240 ml Output Urine Total 500 ml # Voids 3 1 4 # Bowel Movements 1 1 Result Diagram: 07/17/16 0709 07/18/16 0650 Imaging Last Impressions Abdomen/Pelvis CT 07/15/16 1741 Signed Impressions: Service Date/Time: June 19:16 - CONCLUSION: Right-sided pyelonephritis. No evidence of urinary tract obstruction. Hardeep Salazar MD Objective Remarks GENERAL: NAD SKIN: Warm and dry. HEAD: Normocephalic. EYES: No scleral icterus. No injection or drainage. NECK: Supple, trachea midline. No JVD or lymphadenopathy. CARDIOVASCULAR: Regular rate and rhythm without murmurs, gallops, or rubs. RESPIRATORY: Breath sounds equal bilaterally. No accessory muscle use. GASTROINTESTINAL: Abdomen soft, non-tender, nondistended. MUSCULOSKELETAL: No cyanosis, or edema. BACK: Nontender without obvious deformity. No CVA tenderness. Procedures none A/P Problem List: (1) Pyelonephritis ICD Code: N12 Status: Acute (2) Sepsis ICD Code: A41.9 Status: Resolved (3) Diarrhea ICD Code: R19.7 Status: Acute (4) Anxiety and depression ICD Code: F41.9 Status: Chronic (5) Hypotension ICD Code: I95.9 Status: Resolved (6) Blood bacterial culture positive ICD Code: R78.81 Status: Resolved Assessment and Plan 30-year-old female with 1-Sepsis: Secondary to pyelonephritis. Now resolved Rocephin 8-[id number]-W Coli: s/p Cipro IV every 12 hour and now on Rocephin 1 g IV every 24 3-Positive bacteria blood culture :#1/4 positive for GNR;it appears this is a contaminant and repeat blood culture NTD 4-Diarrhea: C. difficile PCR negative, continue with conservative treatment and continue Imodium.. Continue Lactinex 5-Hypotension: Secondary to volume loss, improving and continue NS@ 125 cc/hour 6-Hypokalemia: Resolved 7-DVT prophylaxis: Lovenox 8-Migraine headaches: Improved with Imitrex Problem Qualifiers (1) Sepsis: Qualified Code: A41.9 - Sepsis, due to unspecified organism (2) Diarrhea: Qualified Code: R19.7 - Diarrhea, unspecified type Cruzito Hall MD Jul 18, 2016 08:15
--- NOTE | 2016-07-18 08:18 | HHI.DS ---
Discharge Summary Admission Date Jul 15, 2016 at 20:42 Discharge Date: Jul 18, 2016 Admitting Diagnosis pyelonephritis, sepsis (1) Pyelonephritis ICD Code: N12 (2) Sepsis ICD Code: A41.9 (3) Diarrhea ICD Code: R19.7 (4) Anxiety and depression ICD Code: F41.9 (5) Hypotension ICD Code: I95.9 (6) Blood bacterial culture positive ICD Code: R78.81 (7) Migraine headache ICD Code: G43.909 Procedures none Brief History - From Admission 30-year-old female with a history of anxiety and depression presented to the ED with complaints of abdominal pain, fevers, diarrhea, vomiting, nausea. Patient states on Tuesday she began to have nausea, vomiting, diarrhea and sharp abdominal pain in the right lower quadrant. She states abdominal pain is severe and radiates to her back. She went today to her primary care physician who told her to come to the ED for evaluation of appendicitis. She states her diarrhea has been a few times a day and liquid stools, so far none today. Patient states for the last 3 weeks she's had increased migraines and fevers off and on. One month ago she was on medication for a hemorrhoids and what she was taking a pill by mouth and a suppository, she is unsure of the name of the medication, and unsure if it was an antibiotic. She does complain of night sweats for 3 weeks, but has been having increased night sweats since Tuesday. When patient arrived her fever was 101. She denies any chest pain, dysuria, hematuria, or shortness of breath. CBC/BMP: 07/17/16 0709 07/18/16 0650 Significant Findings Laboratory Tests Test 07/15/16 07/16/16 07/17/16 07/18/16 17:55 05:50 07:09 06:50 Sodium Level 132 MEQ/L (136-145) Chloride Level 92 MEQ/L (98-107) Estimat Glomerular Filtration 72 ML/MIN (>89) Rate Random Glucose 120 MG/DL 136 MG/DL 129 MG/DL (74-106) (74-106) (74-106) Lactic Acid Level 2.1 mmol/L (0.4-2.0) Aspartate Amino Transf 43 U/L (15-37) (AST/SGOT) Alkaline Phosphatase 150 U/L (45-117) White Blood Count 15.2 TH/MM3 12.0 TH/MM3 (4.0-11.0) (4.0-11.0) Platelet Count 100 TH/MM3 94 TH/MM3 105 TH/MM3 (150-450) (150-450) (150-450) Neutrophils (%) (Auto) 85.7 % 86.3 % 83.7 % (16.0-70.0) (16.0-70.0) (16.0-70.0) Lymphocytes (%) (Auto) 3.6 % 4.0 % 5.4 % (9.0-44.0) (9.0-44.0) (9.0-44.0) Monocytes (%) (Auto) 10.4 % 9.4 % (0.0-8.0) 10.6 % (0.0-8.0) (0.0-8.0) Neutrophils # (Auto) 13.0 TH/MM3 10.3 TH/MM3 (1.8-7.7) (1.8-7.7) Lymphocytes # (Auto) 0.6 TH/MM3 0.5 TH/MM3 0.4 TH/MM3 (1.0-4.8) (1.0-4.8) (1.0-4.8) Monocytes # (Auto) 1.6 TH/MM3 1.1 TH/MM3 (0-0.9) (0-0.9) Urine Color ORANGE (YELLW/STRAW) Urine Turbidity CLOUDY (CLEAR) Urine Protein 300 mg/dL (NEG-TRACE) Urine Ketones TRACE mg/dL (NEG) Urine Occult Blood MOD (NEG) Urine Urobilinogen 4.0 MG/DL (LESS THAN 2.0) Urine Leukocyte Esterase LARGE (NEG) Urine RBC 4 /hpf (0-3) Urine WBC Clumps OCC (NONE) Urine Bacteria FEW /hpf (NONE) Urine Mucus MANY /lpf (OCC) Red Blood Count 3.76 MIL/MM3 3.39 MIL/MM3 (4.00-5.30) (4.00-5.30) Potassium Level 3.4 MEQ/L 3.3 MEQ/L (3.5-5.1) (3.5-5.1) Calcium Level 8.2 MG/DL 8.4 MG/DL 8.3 MG/DL (8.5-10.1) (8.5-10.1) (8.5-10.1) Total Protein 5.9 GM/DL (6.4-8.2) Albumin 2.6 GM/DL (3.4-5.0) Hemoglobin 11.3 GM/DL (11.6-15.3) Hematocrit 33.3 % (35.0-46.0) Blood Urea Nitrogen 3 MG/DL (7-18) 2 MG/DL (7-18) Creatinine 0.46 MG/DL 0.45 MG/DL (0.50-1.00) (0.50-1.00) Imaging Last Impressions Abdomen/Pelvis CT 07/15/16 8291 Signed Impressions: Service Date/Time: June 19:16 - CONCLUSION: Right-sided pyelonephritis. No evidence of urinary tract obstruction. Hardeep Salazar MD PE at Discharge GENERAL: NAD SKIN: Warm and dry. HEAD: Normocephalic. EYES: No scleral icterus. No injection or drainage. NECK: Supple, trachea midline. No JVD or lymphadenopathy. CARDIOVASCULAR: Regular rate and rhythm without murmurs, gallops, or rubs. RESPIRATORY: Breath sounds equal bilaterally. No accessory muscle use. GASTROINTESTINAL: Abdomen soft, non-tender, nondistended. MUSCULOSKELETAL: No cyanosis, or edema. BACK: Nontender without obvious deformity. No CVA tenderness. Hospital Course Patient admitted secondary to sepsis and acute pyelonephritis started on IV antibiotic with monitoring of cultures. Secondary to hypotension IV fluid rate was increased with improvement of BP. Blood culture was repeated secondary to one positive which appeared to be a contaminant as repeat culture were negative prior to discharge. Electrolyte abnormality including hypokalemia replace accordingly. C. difficile PCR was negative due to patient having diarrhea and she was started on antidiarrheal motility agent with improvement of symptoms. She was started on Imitrex for migraine headache. DVT and GI prophylaxis were provided. Her condition improved prior to discharge and she was able to ambulate without any assistance. Pt Condition on Discharge: Stable Discharge Disposition: Discharge Home Discharge Time: <= 30 minutes Discharge Instructions DIET: Follow Instructions for: Heart Healthy Diet Activities you can perform: Regular-No Restrictions Follow up Referrals: PCP Follow-up - 1 Week New Medications: Ciprofloxacin (Cipro) 500 Mg Tab 500 MG PO BID Infection #14 Ref 0 TAB Lactobacillus Acidophilus (Acidophilus/l-Sporogenes) 1 Tab Tab 1 TAB PO Q12HR Infection #30 TAB Loperamide (Loperamide) 2 Mg Tab 2 MG PO UNSCH PRN DIARRHEA #14 TAB Sumatriptan (Imitrex) 25 Mg Tab 25 MG PO BID PRN MIGRAINE HEADACHE #10 TAB Continued Medications: Alprazolam (Xanax) 0.25 Mg Tab 0.25 MG PO DAILY PRN ANXIETY Ref 0 TAB Cyclobenzaprine (Flexeril) 10 Mg Tab 10 MG PO TID Muscle Spasm #90 Ref 0 TAB Sertraline (Sertraline) 50 Mg Tab 50 MG PO DAILY #30 Ref 0 TAB Discontinued Medications: Naproxen (Naproxen) 500 Mg Tab 500 MG PO BID PRN PAIN #60 Ref 0 TAB Cruzito Hall MD Jul 18, 2016 08:18
[2016-07-18] MEDS ORDERED: IMIT25TA PO (08:21)
[2016-07-18] MEDS ORDERED: LACT PO (08:21)
[2016-07-18] MEDS ORDERED: LOPE2TAB PO (08:21)
[2016-07-18] MEDS ORDERED: CIPR-9 PO (08:21)
[2016-07-18] MEDS: CYCLOBENZAPRINE HCL 10 MG TAB PO SCH (08:24)
[2016-07-18] MEDS: SERTRALINE HCL 50 MG TAB PO SCH (08:24)
[2016-07-18] MEDS: LACTOBACILLUS ACIDOPHILUS TAB PO SCH (08:24)
[2016-07-18] MEDS: SODIUM CHLORIDE 0.9% FLUSH 5 ML FLUSH FLUSH SCH (08:27)
[2016-07-18] MEDS: cefTRIAXone INJ 1,000 MG in SODIUM CHLORIDE 0.9% INJ 100 ML IV SCH (10:12)
[2016-07-18 12:00] VITALS: BP 114/60; PULSE 99; RESP 18; TEMP 99.8; O2SAT 99
== END 2016-07-18 12:05 | disposition home or self-care (01) | DRG 872 ==
LOC: NEPA 17:18 → NEDA 20:42 → N04B 22:18
PROVIDERS: ADMIT Hospitalist; ATTEND Hospitalist
DX: A41.9 Sepsis, unspecified organism (principal); I95.9 Hypotension, unspecified; N10 Acute pyelonephritis; M41.9 Scoliosis, unspecified; R19.7 Diarrhea, unspecified; F32.9 Major depressive disorder, single episode, unspecified; F41.9 Anxiety disorder, unspecified; G43.909 Migraine, unspecified, not intractable, without status migrainosus; E87.6 Hypokalemia; F17.210 Nicotine dependence, cigarettes, uncomplicated
CPT/HCPCS: 74177; 76937; 80048; 80053; 81001; 83605; 83735; 84703; 85025; 87040; 87077; 87086; 87186; 87205; 87328; 87329; 87493; 87506; 87804; 93005; 96365; 96375; J0696; J0744; J1170; J1650; J2405; J7030; Q9967